=== PATIENT | female | born 1965 | race Caucasian/White ===

== ENCOUNTER 2018-03-11 15:52 | Emergency (ER) | payer OTHER ==
[~2018-03-11] VITALS: Ht 233.7 cm; Wt 71.8 kg
[2018-03-11] MEDS ORDERED: KEFLEX500 MG PO (18:37)
[2018-03-11] MEDS ORDERED: MOTRIN800 MG PO (18:38)
[2018-03-11] MEDS ORDERED: PERCOCET 5/31 TABLET PO (18:38)
[2018-03-11 18:56] VITALS: BP 123/76
== END 2018-03-11 18:58 | disposition home or self-care (01) ==
LOC: EME 15:52 → EXP 15:52
PROC: 0HQLXZZ Repair Left Lower Leg Skin, External Approach (ICD-10-PCS; principal; 2018-03-11)
DX: S81.022A Laceration with foreign body, left knee, initial encounter (principal); W18.30XA Fall on same level, unspecified, initial encounter; Y92.830 Public park as the place of occurrence of the external cause
CPT/HCPCS: 73564; 73590; 99281; 99284